=== PATIENT | female | born 1955 | race Caucasian/White ===

== ENCOUNTER 2019-07-14 16:29 | Emergency (ER) | payer BC ==
[2019-07-14] MEDS ORDERED: Sodium Chloride 0.9% 10 ML Syringe FLUSH PRN (17:00)
[2019-07-14] MEDS ORDERED: Morphine 4 MG/ML Syringe IVPUSH ONE (17:00)
[2019-07-14] MEDS ORDERED: Propofol 200 MG/20 ML SDV IVPUSH ONE (17:23)
[2019-07-14] MEDS ORDERED: Acetaminophen/HYDROcodone 325-5 MG Tab PO ONE (18:04)
[2019-07-14] MEDS ORDERED: Ketorolac 30 MG/ML SDV IVPUSH ONE (18:05)
--- NOTE | 2019-07-14 18:14 | EDM.PDOC ---
ED HPI GENERAL MEDICAL PROBLEM - General Chief Complaint: Lower Extremity Injury/Pain Stated Complaint: POSSIBLE L BROKEN ANKLE Time Seen by Provider: 07/14/19 17:30 Source of Information: Reports: Patient, Family (son) History Limitations: Reports: No Limitations - History of Present Illness INITIAL COMMENTS - FREE TEXT/NARRATIVE: Alert pleasant 63 yo female presents due to slip fall in driveway at 3:30 this evening while wearing slippers. Patient had to crawl into the house to get help. brought her to the ER for evaluation. Patient denies hitting her head or other injuries. Patient did not take any OTC medications for pain since fall, Last meal at noon. Patient denies previous left ankle injury or surgery. Left Ankle Pain Score (Numeric/FACES): 8 - Related Data Allergies Allergy/AdvReac Type Severity Reaction Status Date / Time No Known Allergies Allergy Verified 07/14/19 16:44 Home Meds: Home Meds Acetaminophen/HYDROcodone [[place] 325-5 MG] 1 - 2 tab PO Q6H PRN 3 Days #20 tab 07/14/19 [Rx] Aspirin [Halfprin] 162 mg PO BEDTIME 07/14/19 [History] Doxycycline [Doxycycline Hyclate] 50 mg PO Q12HR 07/14/19 [History] Simvastatin 20 mg PO BEDTIME 07/14/19 [History] Past Medical History Cardiovascular History: Reports: Afib, High Cholesterol Respiratory History: Reports: Sleep Apnea Other Respiratory History: c-pap Gastrointestinal History: Reports: Cholelithiasis Psychiatric History: Reports: Depression Other Psychiatric History: med reaction depression Dermatologic History: Reports: Other (See Below) Other Dermatologic History: rosasa - Past Surgical History GI Surgical History: Reports: Cholecystectomy Social & Family History - Tobacco Use Smoking Status *Q: Never Smoker - Caffeine Use Caffeine Use: Reports: None - Recreational Drug Use Recreational Drug Use: No Review of Systems - Review of Systems Review Of Systems: ROS reveals no pertinent complaints other than HPI. ED EXAM, GENERAL - Physical Exam Exam: See Below Exam Limited By: No Limitations General Appearance: Alert, WD/WN, Moderate Distress (due to obvious left ankle fracture with possisble dislocation) Eye Exam: Bilateral Eye: EOMI, PERRL Ears: Normal External Exam, Normal Canal, Hearing Grossly Normal Nose: Normal Inspection, Normal Mucosa Throat/Mouth: Normal Inspection, Normal Lips, Normal Teeth, Normal Gums Head: Atraumatic, Normocephalic Neck: Normal Inspection, Supple, Non-Tender Respiratory/Chest: No Respiratory Distress, Lungs Clear, Normal Breath Sounds Cardiovascular: Normal Peripheral Pulses, Regular Rate, Rhythm GI/Abdominal: Normal Bowel Sounds, Soft, Non-Tender Extremities: Normal Inspection, Normal Range of Motion, Joint Swelling (left ankle significant swelling with slight lateral deformity ) Neurological: Alert, Oriented, CN II-XII Intact, Normal Cognition Psychiatric: Normal Affect, Normal Mood Skin Exam: Warm, Dry, Intact, Normal Color, No Rash ED TRAUMA EXTREMITY PROCEDURES - Joint Reduction Site: Other (left ankle fracture dislocation ) Sedation: Conscious Sedation (propofol with Dr Jeffrey at bedside 50mg x 1) Pre-Procedure NV Status: Normal Post-Procedure NV Status: Normal Technique: Traction/Counter Traction Post-Reduction Imaging: Acceptably Reduced (post reduction film noted), Fracture Seen Joint Reduction Complications: No - Splinting Left Lower Extremity Splint Site: left ankle Pre-Procedure NV Status: Normal Post-Procedure NV Status: Normal Splint Material: Plaster Splint Design: Stirrup, Posterior Applied & Form Fitted By: Provider Provider Post-Splint Application NV Check: NV Status Normal, Good Position Complications: No Course - Vital Signs Last Recorded V/S: Last Vital Signs Temp 37.3 C 07/14/19 16:51 Pulse 83 07/14/19 16:51 Resp 18 07/14/19 16:51 BP 172/77 H 07/14/19 16:51 Pulse Ox 92 L 07/14/19 16:51 - Orders/Labs/Meds Orders: Active Orders 24 hr Category Date Time Status Peripheral IV Care [RC] . DIRECTED Care 07/14/19 17:00 Active Ankle 2V Lt [CR] Stat Exams 07/14/19 18:02 Ordered Ankle Min 3V Lt [CR] Stat Exams 07/14/19 17:00 Taken Sodium Chloride 0.9% [Saline Flush] Med 07/14/19 17:00 Active 10 ml FLUSH ASDIRECTED PRN Peripheral IV Insertion Adult [OM.PC] Urgent Oth 07/14/19 16:59 Ordered Medication Orders Sodium Chloride (Saline Flush) 10 ml FLUSH ASDIRECTED PRN PRN Reason: Keep Vein Open Last Admin: 07/14/19 17:19 Dose: 10 ml Meds: Medications Generic Name Dose Route Start Last Admin Trade Name Freq PRN Reason Stop Dose Admin Sodium Chloride 10 ml 07/14/19 17:00 07/14/19 17:19 Saline Flush FLUSH 10 ml ASDIRECTED PRN Administration Keep Vein Open Discontinued Medications Generic Name Dose Route Start Last Admin Trade Name Freq PRN Reason Stop Dose Admin Morphine Sulfate 4 mg 07/14/19 17:00 07/14/19 17:15 Morphine IVPUSH 07/14/19 17:01 4 mg ONETIME ONE Administration Propofol 50 mg 07/14/19 17:23 07/14/19 17:38 Diprivan 20 Ml IVPUSH 07/14/19 17:24 50 mg ONETIME ONE Administration - Radiology Interpretation Free Text/Narrative:: Left Ankle XR: Obvious dislocation with lateral and posterior fracture and widening of the mortis. Sedation and Reduction completed> Left Ankle XR: Post reduction dislocation reduced and improved anatomical positioning. Pain much improved per patient. Departure - Departure Time of Disposition: 18:20 Disposition: Home, Self-Care 01 Clinical Impression: Bimalleolar fracture of ankle, Fracture of ankle, Dislocation of ankle joint - Discharge Information Prescriptions: Acetaminophen/HYDROcodone [[place] 325-5 MG] 1 - 2 tab PO Q6H PRN 3 Days #20 tab PRN Reason: Pain (Severe 7-10) Instructions: Ankle Fracture, Cast or Splint Care, Adult, Complex Ankle Fracture Referrals: PCP,None [Primary Care Provider] - Samuel Sauceda MD [Physician] - Additional Instructions: 1. Elevated above heart at all times as much as possible to prevent swelling. Unless using bathroom. 2. Ice 15-20 minutes 3-4 times per day to help with swelling. 3. Call Orthopedic clinic in am for follow instructions this week (Monday/ Monday). 4. [place] 1-2 tablets every 6 hours for moderate to severe pain #20. 5. May take normal medications as directed. 6. Call PCP if needed for additional pain medications. - Problem List & Annotations (1) Bimalleolar fracture of ankle SNOMED Code(s): 501508226 Code(s): S82.843A - DISPLACED BIMALLEOLAR FRACTURE OF UNSP LOWER LEG, INIT Status: Acute Current Visit: Yes - My Orders Last 24 Hours: My Active Orders 07/14/19 16:59 Peripheral IV Insertion Adult [OM.PC] Urgent 07/14/19 17:00 Peripheral IV Care [RC] . DIRECTED Ankle Min 3V Lt [CR] Stat Sodium Chloride 0.9% [Saline Flush] 10 ml FLUSH ASDIRECTED PRN 07/14/19 18:02 Ankle 2V Lt [CR] Stat - Assessment/Plan Last 24 Hours: My Active Orders 07/14/19 16:59 Peripheral IV Insertion Adult [OM.PC] Urgent 07/14/19 17:00 Peripheral IV Care [RC] . DIRECTED Ankle Min 3V Lt [CR] Stat Sodium Chloride 0.9% [Saline Flush] 10 ml FLUSH ASDIRECTED PRN 07/14/19 18:02 Ankle 2V Lt [CR] Stat
--- NOTE | 2019-07-14 18:20 | CRLCR ---
Indication: Left ankle injury after fall. Technique: Three views of the left ankle were obtained. Comparison: None Findings: The tibia is dislocated 3/4 shaft with medial in relation to the talus. A fracture of the posterior malleolus is identified. Tibia is also dislocated approximately 1 shaft with anterior in relation to the talus. A fracture of the distal fibula is identified. The distal fracture fragment remains in contact with the talus. The proximal fracture fragment is dislocated approximately 1 shaft with medial in relation to the distal fracture fragment. Impression: Distal tibial and fibular fractures with dislocation. Dictated by Marianne Siu MD @ Jul 14 2019 6:17PM Signed by Dr. Marianne Siu @ Jul 14 2019 6:18PM
--- NOTE | 2019-07-14 18:25 | CRLCR ---
Indication: Postreduction ankle. Technique: Two views of the left ankle were obtained. Comparison: Study from earlier today. The current study is dated 1808 hours. Findings: Cast material obscures bony detail. The distal tibial fracture is identified, the alignment is closer to anatomic. A distal fibular fracture is identified. The alignment is close to anatomic. Impression: Postreduction of the distal tibial and fibular fractures. Dictated by Marianne Siu MD @ Jul 14 2019 6:23PM Signed by Dr. Marianne Siu @ Jul 14 2019 6:24PM
== END 2019-07-14 19:06 | disposition home or self-care (01) ==
LOC: JP.ED 16:29
DX: S82.842A Displaced bimalleolar fracture of left lower leg, initial encounter for closed fracture (principal); S82.402A Unspecified fracture of shaft of left fibula, initial encounter for closed fracture; I48.91 Unspecified atrial fibrillation; W01.0XXA Fall on same level from slipping, tripping and stumbling without subsequent striking against object, initial encounter
CPT/HCPCS: 27810; 73600; 73610; 96374; 96375; 99152; 99283; A9270; J1885; J2270; J2704

== ENCOUNTER → 2019-07-22 | Day surgery (SDC) | payer BC ==
[~2019-07-22] MED LIST: Acetaminophen/HYDROcodone 325-5 MG Tab PO ONE; Acetaminophen/oxyCODONE 325-5 MG Tab PO PRN; Dexamethasone 4 MG/ML SDV ONE; Glycopyrrolate 0.2 MG/ML 5 ML MDV ONE; Lactated Ringers 1,000 ML IV SCH; Lactated Ringers 1,000 ML ONE; Midazolam 1 MG/ML 2 ML SDV ONE; Neostigmine Methylsulfate 1 MG/ML 5 ML Syringe ONE; Nozin Nasal Sanitizer NASBOTH ONE; Ondansetron 4 MG/2 ML SDV ONE; Povidone-Iodine 10% Soln 118.25 ML Bottle ONE; Propofol 200 MG/20 ML SDV ONE; Succinylcholine 200 MG/10 ML MDV ONE; ceFAZolin 2 GM in Sodium Chloride 0.9% 50 ML IV ONE; fentaNYL 100 MCG/2 ML SDV ONE; fentaNYL 250 MCG/5 ML SDV ONE
[2019-07-22] MEDS: Bupivacaine 0.5% 30 ML SDV ONE ×2 (11:23→11:50)
--- NOTE | 2019-07-31 15:47 | OR ---
DATE OF PROCEDURE: 07/22/2019 SURGEON: Samuel Sauceda MD PREOPERATIVE DIAGNOSIS: Fracture dislocation, left ankle. POSTOPERATIVE DIAGNOSIS: Fracture dislocation, left ankle, with partial rupture of deltoid ligament. PROCEDURE: Open reduction and internal fixation of left fibula and repair of deltoid ligament, left ankle. ANESTHESIA: General. INDICATIONS: Min is a very pleasant 63-year-old female, who sustained a fall resulting in fracture of her distal fibula and dislocation of the ankle joint. She underwent reduction in the emergency department. On initial evaluation, she had significant amount of swelling and time was allowed for the swelling to recede in order to proceed safely with surgical fixation. Risks, benefits, potential complications of the procedure were discussed. DESCRIPTION OF PROCEDURE: After adequate anesthesia was obtained, the patient was placed supine with a bump under the left hip and the left foot and lower leg were prepped and draped in a sterile fashion. Leg was exsanguinated and tourniquet inflated to 300 mmHg pressure. A longitudinal incision was made over the lateral aspect of the ankle, carried down to the subcutaneous border of the fibula. Soft tissues were cleared from the fracture site. The fracture was then held in a reduced position with a tenaculum clamp. A Synthes contoured fibular plate was then selected and secured to the lateral fibula using the locking screws distally and cortical screws in compression proximally. Final position was confirmed using fluoroscopy. This resulted in very good reduction of the talus into the mortise, but did have some lateral displacement with stress. Separate incision was made medially over the medial malleolus and carried down through the subcutaneous tissues. Deltoid ligament was identified. This showed a rent in the more anterior portions of the ligament. A #1 Ethibond suture was used to directly repair the ligament. Fluoroscopy was then again used to check the stability of the ankle joint under stress with no opening of the medial gutter space. Wounds were irrigated. They were then closed with 0 Vicryl in the deep layer, 2-0 Vicryl, and a running 3-0 Monocryl. Steri- Strips were applied. A well-padded AO plaster splint was applied with the foot in neutral position. The patient tolerated the procedure well. There were complications. She was taken from the operating room in stable condition. Samuel Sauceda MD /[id number]
== END ==
LOC: JP.SDS 08:26
PROVIDERS: ATTEND Specialist
DX: S82.62XA Displaced fracture of lateral malleolus of left fibula, initial encounter for closed fracture (principal); S93.422A Sprain of deltoid ligament of left ankle, initial encounter; E78.00 Pure hypercholesterolemia, unspecified; G47.30 Sleep apnea, unspecified; E78.5 Hyperlipidemia, unspecified; F32.9 Major depressive disorder, single episode, unspecified; E66.9 Obesity, unspecified; W01.0XXA Fall on same level from slipping, tripping and stumbling without subsequent striking against object, initial encounter; Y92.194 Driveway of other specified residential institution as the place of occurrence of the external cause; Z79.82 Long term (current) use of aspirin; Z79.899 Other long term (current) drug therapy; Z99.89 Dependence on other enabling machines and devices
CPT/HCPCS: 27695; 27792; 36415; 80048; 85027; A9270; C1713; J0690; J2250; J2704; J3010; J3490; J7050; J7120; J0330; J1100; J2405; J2710

== ENCOUNTER 2020-05-01 06:35 | Day surgery (SDC) | payer MEDICARE, BC ==
[2020-05-01] MEDS ORDERED: Sodium Chloride 0.9% 1,000 ML IV SCH (07:00)
[2020-05-01] MEDS ORDERED: fentaNYL 100 MCG/2 ML SDV ONE (07:42)
[2020-05-01] MEDS ORDERED: Propofol 200 MG/20 ML SDV ONE (07:42)
[2020-05-01] MEDS ORDERED: Midazolam 1 MG/ML 2 ML SDV ONE (07:42)
--- NOTE | 2020-05-01 11:57 | OR ---
DATE OF PROCEDURE: 05/01/2020 SURGEON: Gamal Jones MD PROCEDURE: Colonoscopy. FINDINGS: Pedunculated-type anal lesion, both internal and external (biopsied using cold biopsy forceps). COMPLICATIONS: None. SERVICES MGR: None. ANESTHESIA: MAC. PREOPERATIVE DIAGNOSIS: Screening colonoscopy. POSTOPERATIVE DIAGNOSIS: Screening colonoscopy. RISKS: Risks, benefits, alternatives, and limitations including, but not limited to infection, bleeding, and perforation were explained to the patient, who wished to proceed. PROCEDURE IN DETAIL: The patient was placed in left lateral decubitus position. Digital rectal exam and anal exam showed a pedunculated-type lesion that was extending both internally and externally with concerning architecture. This would be the same lesion that would be biopsied with the endoscope. The scope was then introduced and advanced atraumatically to the ileocecal valve. The scope was brought back through the ascending, transverse, descending colon, and retroflexed. No evidence of old or new blood. No masses. No polyps. The patient had approximately less than 5 diverticular lesions without bleeding or infection. On retroflexion, the same lesion was identified again, this was biopsied using cold biopsy forceps. The patient tolerated the procedure well. Greater than 8 minutes was used to remove the scope. Of note, the patient will be scheduled for removal of this lesion, as it is concerning for malignancy. This will be scheduled, after consulting with the patient, even if pathology is benign. Gamal Jones MD /[id number]
== END 2020-05-01 10:22 | disposition home or self-care (01) ==
LOC: JP.SDS 06:35
PROVIDERS: ATTEND Surgery
DX: Z12.11 Encounter for screening for malignant neoplasm of colon (principal); L57.0 Actinic keratosis; K62.89 Other specified diseases of anus and rectum; G47.33 Obstructive sleep apnea (adult) (pediatric); F32.9 Major depressive disorder, single episode, unspecified; E66.9 Obesity, unspecified; K21.9 Gastro-esophageal reflux disease without esophagitis; Z68.36 Body mass index [BMI] 36.0-36.9, adult
CPT/HCPCS: 45380; J2250; J2704; J3010; J7030; 88305

== ENCOUNTER 2020-05-08 07:06 | Day surgery (SDC) | payer MEDICARE, BC ==
[~2020-05-08 07:06] MED LIST changes: -Acetaminophen/HYDROcodone 325-5 MG Tab PO ONE; -Acetaminophen/oxyCODONE 325-5 MG Tab PO PRN; +Bupivacaine 0.5% 50 ML MDV ONE; -Dexamethasone 4 MG/ML SDV ONE; -Glycopyrrolate 0.2 MG/ML 5 ML MDV ONE; -Lactated Ringers 1,000 ML IV SCH; -Lactated Ringers 1,000 ML ONE; +Lidocaine 1% with EPINEPHrine 1:100,000 50 ML MDV ONE; +Lidocaine 2% Jelly 30 ML Tube ONE; -Midazolam 1 MG/ML 2 ML SDV ONE; -Neostigmine Methylsulfate 1 MG/ML 5 ML Syringe ONE; -Nozin Nasal Sanitizer NASBOTH ONE; -Ondansetron 4 MG/2 ML SDV ONE; -Povidone-Iodine 10% Soln 118.25 ML Bottle ONE; -Propofol 200 MG/20 ML SDV ONE; +Sodium Chloride 0.9% 1,000 ML IV SCH; -Succinylcholine 200 MG/10 ML MDV ONE; -ceFAZolin 2 GM in Sodium Chloride 0.9% 50 ML IV ONE; -fentaNYL 100 MCG/2 ML SDV ONE; -fentaNYL 250 MCG/5 ML SDV ONE
[2020-05-08] MEDS ORDERED: Propofol 200 MG/20 ML SDV ONE (07:25)
[2020-05-08] MEDS ORDERED: fentaNYL 100 MCG/2 ML SDV ONE (07:25)
[2020-05-08] MEDS ORDERED: Midazolam 1 MG/ML 2 ML SDV ONE (07:25)
[2020-05-08] MEDS ORDERED: ceFAZolin 2 GM in Premix Bag 1 BAG IV ONE (07:30)
[2020-05-08] MEDS ORDERED: metroNIDAZOLE/Normal Saline 500 MG in Premix Bag 1 BAG IV ONE (07:30)
--- NOTE | 2020-07-28 12:11 | OR ---
DATE OF PROCEDURE: 05/08/2020 SURGEON: Gamal Jones MD PROCEDURE: Excision, anal lesion. COMPLICATIONS: None. OWNER/OPERATOR: None. ANESTHESIA: MAC/local. RISKS: Risks, benefits, alternatives, and limitations including, but not limited to, infection, bleeding, perforation, chronic pain, and other risks not listed here were explained to the patient. DESCRIPTION OF PROCEDURE: The patient was placed in left lateral decubitus position. The area was anesthetized with lidocaine. Electrocautery and combination of a 15 blade were used to excise the lesion. Lesion was then closed with dissolving chromic. The lesion was approximately 2 cm in size. Dressings were applied. The patient tolerated the procedure well. Gamal Jones MD /[id number]
== END 2020-05-08 10:30 | disposition home or self-care (01) ==
LOC: JP.SDS 07:06
PROVIDERS: ATTEND Surgery
DX: D23.5 Other benign neoplasm of skin of trunk (principal); E78.5 Hyperlipidemia, unspecified; I48.91 Unspecified atrial fibrillation; F41.9 Anxiety disorder, unspecified; Z91.013 Allergy to seafood
CPT/HCPCS: 46924; 88305; J2250; J2704; J3010; J3490; J7030

== ENCOUNTER 2021-01-21 19:31 | Emergency (ER) | payer MEDICARE, BC ==
[2021-01-21] MEDS ORDERED: Sodium Chloride 0.9% 10 ML Syringe FLUSH PRN (19:39)
[2021-01-21] MEDS ORDERED: Diltiazem 25 MG/5 ML SDV IVPUSH ONE (19:46)
--- NOTE | 2021-01-21 19:59 | EDM.PDOC ---
ED HPI GENERAL MEDICAL PROBLEM - General Chief Complaint: Cardiovascular Problem Stated Complaint: AFIB Time Seen by Provider: 01/21/21 19:46 Source of Information: Reports: Patient History Limitations: Reports: No Limitations - History of Present Illness INITIAL COMMENTS - FREE TEXT/NARRATIVE: Min is a 65-year-old female with a history of paroxysmal atrial fibrillation status post cardiac ablation several years ago who presents with acute onset of tachycardia starting around 1900 hrs. tonight. Patient denies any chest pain or shortness of breath, lightheadedness, nausea, and vomiting. This will be the first recurrence of her atrial arrhythmia since undergoing the ablation. She is currently on simvastatin 20 mg daily and lisinopril 10 mg daily. denies Pain Score (Numeric/FACES): 0 - Related Data Allergies Allergy/AdvReac Type Severity Reaction Status Date / Time shellfish derived Allergy Hives Verified 01/21/21 19:44 Home Meds: Home Meds Simvastatin 20 mg PO BEDTIME 07/14/19 [History] Ibuprofen 200 mg PO ASDIRECTED PRN 07/22/19 [History] Betamethasone/Clotrimazole [Lotrisone] 1 applic TOP QAM 04/28/20 [History] Triamcinolone Acetonide [Kenalog 0.1% Crm] 1 applic TOP BID 04/28/20 [History] Aspirin [Halfprin] 81 mg PO DAILY 05/08/20 [History] Past Medical History HEENT History: Reports: Impaired Vision Cardiovascular History: Reports: Afib, High Cholesterol Respiratory History: Reports: Sleep Apnea Other Respiratory History: c-pap Gastrointestinal History: Reports: Cholelithiasis, GERD Genitourinary History: Reports: None 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 ORIF L ankle 07/23/19 Neurological History: Reports: None Psychiatric History: Reports: Depression Other Psychiatric History: NO DEPRESSION NOTED SINCE 1986 Endocrine/Metabolic History: Reports: None Hematologic History: Reports: None Immunologic History: Reports: None Oncologic (Cancer) History: Reports: None Dermatologic History: Reports: Other (See Below) Other Dermatologic History: rosasa - Infectious Disease History Infectious Disease History: Reports: Chicken Pox, Measles, Mumps - Past Surgical History Head Surgeries/Procedures: Reports: None HEENT Surgical History: Reports: None Cardiovascular Surgical History: Reports: Cardiac Ablation Respiratory Surgical History: Reports: None GI Surgical History: Reports: Cholecystectomy, Colonoscopy Female Surgical History: Reports: None Endocrine Surgical History: Reports: None Neurological Surgical History: Reports: None Musculoskeletal Surgical History: Reports: ORIF Other Musculoskeletal Surgeries/Procedures:: left ankle 07/23/19 Oncologic Surgical History: Reports: None Dermatological Surgical History: Reports: None Social & Family History - Family History Family Medical History: No Pertinent Family History - Caffeine Use Caffeine Use: Reports: None ED ROS GENERAL - Review of Systems Review Of Systems: See Below Constitutional: Reports: No Symptoms HEENT: Reports: No Symptoms Respiratory: Reports: No Symptoms Cardiovascular: Reports: Palpitations Endocrine: Reports: No Symptoms GI/Abdominal: Reports: No Symptoms : Reports: No Symptoms Musculoskeletal: Reports: No Symptoms Skin: Reports: No Symptoms Neurological: Reports: No Symptoms Psychiatric: Reports: No Symptoms Hematologic/Lymphatic: Reports: No Symptoms Immunologic: Reports: No Symptoms ED EXAM, GENERAL - Physical Exam Exam: See Below Exam Limited By: No Limitations General Appearance: Alert, No Apparent Distress, Obese Eye Exam: Bilateral Eye: EOMI, PERRL Head: Atraumatic, Normocephalic Neck: Normal Inspection, Supple. No: Carotid Bruit Respiratory/Chest: No Respiratory Distress, Lungs Clear, Normal Breath Sounds Cardiovascular: Normal Peripheral Pulses, Regular Rate, Rhythm, Tachycardia Peripheral Pulses: 2+: Radial (L), Radial (R), Posterior Tibial (L), Posterior Tibial (R) GI/Abdominal: Normal Bowel Sounds, Soft, Non-Tender Back Exam: Normal Inspection Extremities: Normal Inspection, Normal Range of Motion, No Pedal Edema Neurological: Alert, Oriented, Normal Cognition, No Motor/Sensory Deficits Psychiatric: Normal Affect, Normal Mood Skin Exam: Warm, Dry, Intact, Normal Color Lymphatic: No Adenopathy ED CARDIOLOGY PROCEDURES - Cardioversion Time of Cardioversion: 21:45 Indication: Atrial Flutter with RVR Patient Counseled: Yes Informed Consent Obtained: Yes Preparation: IV Access, Airway Management Equipment, Supplemental Oxygen, Monitor, Reversal Agents Available Pre-Procedure Sedation: Propofol Cardioversion Energy: 200J Sync Mode: Biphasic Successful: Yes Number of Attempts: 1 Patient Condition Post Cardioversion: Improved Post Cardioversion EKG Reviewed: Yes #1 Interpretation EKG Date: 01/21/21 Time: 19:43 Rhythm: A-Flutter Rate (Beats/Min): 145 P-Wave: Absent (Flutter waves are present) QRS: Normal ST-T: Normal QT: Normal (Probable old anterior septal infarct with loss of R waves in V1 and V2 and poor R wave progression in the precordial leads.) Comparison: NA - No Prior EKG #2 Interpretation EKG Date: 01/21/21 Time: 21:50 Rhythm: NSR Rate (Beats/Min): 80 [place]: Normal P-Wave: Present QRS: Normal ST-T: Normal QT: Normal Comparison: Change From Previous EKG (Normal sinus rhythm replaces atrial flutter with rapid ventricular rate.) EKG Interpretation Comments: Old anterior septal infarct with loss of R waves in V1 V2 and poor R wave progression Course - Vital Signs Last Recorded V/S: Last Vital Signs Temp 36.8 C 01/21/21 20:06 Pulse 76 01/21/21 22:47 Resp 17 01/21/21 22:47 BP 126/60 01/21/21 22:47 Pulse Ox 94 L 01/21/21 22:47 - Orders/Labs/Meds Orders: Active Orders 24 hr Category Date Time Status EKG Documentation Completion [RC] ASDIRECTED Care 01/21/21 19:39 Active EKG Documentation Completion [RC] ASDIRECTED Care 01/21/21 21:47 Active Sodium Chloride 0.9% [Saline Flush] Med 01/21/21 19:39 Active 10 ml FLUSH ASDIRECTED PRN Saline Lock Insert [OM.PC] Routine Oth 01/21/21 19:39 Ordered EKG 12 Lead [EK] Routine Ther 01/21/21 19:39 Ordered EKG 12 Lead [EK] Routine Ther 01/21/21 21:47 Ordered Medication Orders Sodium Chloride (Sodium Chloride 0.9% 10 Ml Syringe) 10 ml FLUSH ASDIRECTED PRN PRN Reason: Keep Vein Open Last Admin: 01/21/21 19:58 Dose: 10 ml Documented by: CRUZ Labs: Laboratory Tests 01/21/21 01/21/21 01/21/21 Range/Units 19:54 19:54 21:17 WBC 10.2 (4.5-11.0) K/uL RBC 5.20 (3.30-5.50) M/uL Hgb 15.8 H (12.0-15.0) g/dL Hct 46.6 (36.0-48.0) % MCV 90 (80-98) fL MCH 30 (27-31) pg MCHC 34 (32-36) % Plt Count 225 (150-400) K/uL Neut % (Auto) 47.1 (36-66) % Lymph % (Auto) 37.3 (24-44) % [place] % (Auto) 9.0 H (2-6) % Eos % (Auto) 6.1 H (2-4) % Baso % (Auto) 0.5 (0-1) % Sodium 144 (140-148) mmol/L Potassium 3.8 (3.6-5.2) mmol/L Chloride 104 (100-108) mmol/L Carbon Dioxide 25 (21-32) mmol/L Anion Gap 14.8 H (5.0-14.0) mmol/L BUN 14 (7-18) mg/dL Creatinine 1.0 (0.6-1.0) mg/dL Est Cr Clr Drug Dosing 47.79 mL/min Estimated GFR (MDRD) 55 L (>60) Glucose 108 H (74-106) mg/dL Calcium 9.2 (8.5-10.1) mg/dL Total Bilirubin 0.6 (0.2-1.0) mg/dL AST 40 H (15-37) U/L ALT 44 (12-78) U/L Alkaline Phosphatase 84 (46-116) U/L Troponin I < 0.017 (0.000-0.056) ng/mL Total Protein 7.9 (6.4-8.2) g/dL Albumin 4.1 (3.4-5.0) g/dL Globulin 3.8 H (2.3-3.5) g/dL Albumin/Globulin Ratio 1.1 L (1.2-2.2) Free T4 1.02 (0.76-1.46) ng/dL TSH, Ultra Sensitive 5.512 H (0.358-3.740) uIU/mL Meds: Medications Generic Name Dose Route Start Last Admin Trade Name Freq PRN Reason Stop Dose Admin Sodium Chloride 10 ml 01/21/21 19:39 01/21/21 19:58 Sodium Chloride 0.9% 10 Ml Syringe FLUSH 10 ml ASDIRECTED PRN Administration Keep Vein Open Discontinued Medications Generic Name Dose Route Start Last Admin Trade Name Xander PRN Reason Stop Dose Admin Diltiazem HCl 20 mg 01/21/21 19:46 01/21/21 19:54 Diltiazem 25 Mg/5 Ml Sdv IVPUSH 01/21/21 19:47 20 mg ONETIME ONE Administration Propofol Confirm 01/21/21 21:52 Propofol 200 Mg/20 Ml Sdv Administered 01/21/21 21:53 Dose 200 mg .ROUTE .[facility] ONE - Re-Assessments/Exams Free Text/Narrative Re-Assessment/Exam: 01/21/21 22:54 I reviewed the patient's labs showing an elevated TSH at 5.5 with a normal free T4 indicating sick euthyroid. This will need to be monitored, but does not require any thyroid replacement therapy at this time. The patient presented in atrial flutter with a rapid ventricular rate of 149 bpm. We discussed treatment options including electrocardioversion which the patient elected to proceed with. Anesthesia provided sedation and the patient was cardioverted using biphasic 200 J synchronized resulting in conversion to normal sinus rhythm with a rate of 80 bpm. Patient was recovered and has been monitored for an hour after the procedure with no recurrence of her tachycardia. Her labs are otherwise unremarkable including a CBC, CRP, comprehensive metabolic profile, and troponin I. The patient was observed for an hour after cardioversion has not had any recurrence of tachycardia. At this time I believe she is suitable for discharge home. Indications return to the ED were discussed. Departure - Departure Time of Disposition: 22:56 Disposition: Home, Self-Care 01 Clinical Impression: Atrial flutter with rapid ventricular response, Encounter for cardioversion procedure Instructions: Atrial Flutter Referrals: Elie Chung MD [Primary Care Provider] - Forms: ED Department Discharge Care Plan Goals: Please return to the ED should you have any recurrence of your palpitations. Your heart rate and blood pressure have normalized at this time. I do not believe any additional medication is required for you at this time. Follow-up with your primary care provider as needed. Sepsis Event Note (ED) - Focused Exam Vital Signs: Vital Signs Temp Pulse Resp BP Pulse Ox 01/21/21 22:47 76 17 126/60 94 L 01/21/21 22:13 80 15 113/60 94 L 01/21/21 21:36 144 H 12 147/96 H 97 01/21/21 21:15 124 H 13 136/77 96 01/21/21 20:52 133 H 13 149/79 H 96 01/21/21 20:28 102 H 13 157/69 H 94 L 01/21/21 20:06 36.8 C 145 H 16 185/101 H 96 01/21/21 19:59 145 H 185/101 H 01/21/21 19:50 36.8 C 144 H 16 181/101 H 96 - Problem List & Annotations (1) Atrial flutter with rapid ventricular response SNOMED Code(s): 6448045, 2561115 Code(s): I48.92 - UNSPECIFIED ATRIAL FLUTTER Status: Acute Priority: High Current Visit: Yes (2) Encounter for cardioversion procedure SNOMED Code(s): 399974538, 271747092, 236481210 Code(s): Z01.89 - ENCOUNTER FOR OTHER SPECIFIED SPECIAL EXAMINATIONS Status: Acute Priority: High Current Visit: Yes - Problem List Review Problem List Initiated/Reviewed/Updated: Yes - My Orders Last 24 Hours: My Active Orders 01/21/21 19:39 EKG Documentation Completion [RC] ASDIRECTED Sodium Chloride 0.9% [Saline Flush] 10 ml FLUSH ASDIRECTED PRN Saline Lock Insert [OM.PC] Routine EKG 12 Lead [EK] Routine 01/21/21 21:47 EKG Documentation Completion [RC] ASDIRECTED EKG 12 Lead [EK] Routine - Assessment/Plan Last 24 Hours: My Active Orders 01/21/21 19:39 EKG Documentation Completion [RC] ASDIRECTED Sodium Chloride 0.9% [Saline Flush] 10 ml FLUSH ASDIRECTED PRN Saline Lock Insert [OM.PC] Routine EKG 12 Lead [EK] Routine 01/21/21 21:47 EKG Documentation Completion [RC] ASDIRECTED EKG 12 Lead [EK] Routine
[2021-01-21] MEDS ORDERED: Propofol 200 MG/20 ML SDV ONE (21:52)
== END 2021-01-21 23:13 | disposition home or self-care (01) ==
LOC: JP.ED 19:31
DX: I48.92 Unspecified atrial flutter (principal); I48.91 Unspecified atrial fibrillation; E78.00 Pure hypercholesterolemia, unspecified; K21.9 Gastro-esophageal reflux disease without esophagitis; Z79.82 Long term (current) use of aspirin; Z79.899 Other long term (current) drug therapy; Z91.013 Allergy to seafood
CPT/HCPCS: 36415; 80053; 84439; 84443; 84484; 85025; 92960; 93005; 96374; 99284; 99285; J2704; J3490

== ENCOUNTER 2021-03-07 00:32 | Emergency (ER) | payer MEDICARE, BC ==
[2021-03-07] MEDS ORDERED: Metoprolol Tartrate 50 MG Tab PO ONE (01:09)
--- NOTE | 2021-03-07 01:16 | EDM.PDOC ---
ED HPI GENERAL MEDICAL PROBLEM - General Chief Complaint: Cardiovascular Problem Stated Complaint: A-FIB Time Seen by Provider: 03/07/21 00:55 Source of Information: Reports: Patient, Family History Limitations: Reports: No Limitations - History of Present Illness INITIAL COMMENTS - FREE TEXT/NARRATIVE: 65-year-old female who is underwent ablation in the past, continues to have intermittent atrial fib and flutter. She has an event monitor on currently, has had several consultations and a stress test recently. A cardiology consultation recently increased her lisinopril and kept her on 25 mg of metoprolol twice daily. Tonight when she laid down to go to bed around 2 hours ago, she felt fluttering in her chest and when it was persistent she felt she should get it checked out. She is not having any pain or shortness of breath, no nausea or vomiting. She is also now anticoagulated with Eliquis. Onset: Sudden Duration: Hour(s): (2 hours ago) Location: Reports: Chest Associated Symptoms: Reports: No Other Symptoms - Related Data Allergies Allergy/AdvReac Type Severity Reaction Status Date / Time shellfish derived Allergy Hives Verified 03/07/21 00:51 Home Meds: Home Meds Simvastatin 20 mg PO BEDTIME 07/14/19 [History] Betamethasone/Clotrimazole [Lotrisone] 1 applic TOP QAM 04/28/20 [History] Triamcinolone Acetonide [Kenalog 0.1% Crm] 1 applic TOP BID 04/28/20 [History] Aspirin [Halfprin] 81 mg PO DAILY 05/08/20 [History] Apixaban [Eliquis] 5 mg PO BID 03/04/21 [History] Metoprolol Succinate [Toprol XL] 25 mg PO DAILY 03/04/21 [History] lisinopriL [Lisinopril] 20 mg PO DAILY 03/04/21 [History] Past Medical History HEENT History: Reports: Impaired Vision Cardiovascular History: Reports: Afib, High Cholesterol, Hypertension Respiratory History: Reports: Sleep Apnea Other Respiratory History: c-pap Gastrointestinal History: Reports: Cholelithiasis, GERD Genitourinary History: Reports: 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 ORIF L ankle 07/23/19 Neurological History: Reports: None Psychiatric History: Reports: Depression Other Psychiatric History: NO DEPRESSION NOTED SINCE 1986 Endocrine/Metabolic History: Reports: Obesity/BMI 30+ Hematologic History: Reports: None Immunologic History: Reports: None Oncologic (Cancer) History: Reports: None Dermatologic History: Reports: Other (See Below) Other Dermatologic History: rosasa - Infectious Disease History Infectious Disease History: Reports: Chicken Pox, Measles, Mumps - Past Surgical History Head Surgeries/Procedures: Reports: None HEENT Surgical History: Reports: None Cardiovascular Surgical History: Reports: Cardiac Ablation Respiratory Surgical History: Reports: None GI Surgical History: Reports: Cholecystectomy, Colonoscopy Female Surgical History: Reports: None Endocrine Surgical History: Reports: None Neurological Surgical History: Reports: None Musculoskeletal Surgical History: Reports: ORIF Other Musculoskeletal Surgeries/Procedures:: left ankle 07/23/19 Oncologic Surgical History: Reports: None Dermatological Surgical History: Reports: None Social & Family History - Family History Family Medical History: No Pertinent Family History - Tobacco Use Tobacco Use Status *Q: Never Tobacco User - Caffeine Use Caffeine Use: Reports: Tea Caffeine Use Comment: green tea - Recreational Drug Use Recreational Drug Use: No ED ROS GENERAL - Review of Systems Review Of Systems: See Below Constitutional: Denies: Fever, Chills HEENT: Denies: Vision Change Respiratory: Reports: No Symptoms Cardiovascular: Reports: Palpitations GI/Abdominal: Denies: Nausea, Vomiting Skin: Reports: No Symptoms Neurological: Reports: No Symptoms Psychiatric: Reports: No Symptoms ED EXAM, GENERAL - Physical Exam Exam: See Below Exam Limited By: No Limitations General Appearance: Alert, No Apparent Distress Head: Atraumatic Respiratory/Chest: No Respiratory Distress, Lungs Clear Cardiovascular: Irregularly Irregular. No: Tachycardia GI/Abdominal: Soft, Non-Tender Extremities: Normal Inspection. No: Pedal Edema Neurological: Alert, Oriented, No Motor/Sensory Deficits Psychiatric: Normal Affect, Normal Mood Skin Exam: Warm, Dry #1 Interpretation EKG Date: 03/07/21 Rhythm: A-Flutter QRS: Normal Course - Vital Signs Last Recorded V/S: Last Vital Signs Temp 97.6 F 03/07/21 00:53 Pulse 99 03/07/21 01:15 Resp 15 03/07/21 00:53 BP 165/92 H 03/07/21 01:15 Pulse Ox 96 03/07/21 00:53 - Orders/Labs/Meds Meds: Medications Discontinued Medications Generic Name Dose Route Start Last Admin Trade Name Xander PRN Reason Stop Dose Admin Metoprolol Tartrate 50 mg 03/07/21 01:09 03/07/21 01:15 Metoprolol Tartrate 50 Mg Tab PO 03/07/21 01:10 50 mg ONETIME ONE Administration - Re-Assessments/Exams Free Text/Narrative Re-Assessment/Exam: 03/07/21 01:58 EKG showed atrial flutter with intermittent runs of sinus rhythm or sinus beats. Her rate was fairly well controlled at 96-106. She had no other symptoms. We gave her 50 extra milligrams of short release metoprolol and she will return in the morning if still symptomatic. Cardioversion could be considered at that time. Departure - Departure Time of Disposition: 01:29 Disposition: Home, Self-Care 01 Clinical Impression: Atrial fib/flutter, transient Instructions: Atrial Flutter Referrals: Elie Chung MD [Primary Care Provider] - Forms: ED Department Discharge Care Plan Goals: Return tomorrow for further evaluation if still symptomatic. Return sooner if worsening such as increasing shortness of breath or chest pain. Sepsis Event Note (ED) - Evaluation Sepsis Screening Result: No Definite Risk - Focused Exam Vital Signs: Vital Signs Temp Pulse Pulse Resp BP BP Pulse Ox 03/07/21 01:15 88 99 165/92 H 165/92 H 03/07/21 00:53 97.6 F 100 15 193/96 H 96
== END 2021-03-07 01:31 | disposition home or self-care (01) ==
LOC: JP.ED 00:32
DX: I48.92 Unspecified atrial flutter (principal); I48.91 Unspecified atrial fibrillation; E78.00 Pure hypercholesterolemia, unspecified; I10 Essential (primary) hypertension; Z79.82 Long term (current) use of aspirin; Z79.899 Other long term (current) drug therapy
CPT/HCPCS: 93005; 99284; A9270